=== PATIENT | female | born 1975 ===

== ENCOUNTER 2016-07-10 18:45 | Emergency (ER) | payer MEDICAID ==
[2016-07-10 18:52] VITALS: RESP 18; TEMP 98.3
--- NOTE | 2016-07-10 19:32 | C.PDOC ---
History Of Present Illness 41 y.o female reports piece of ceiling wall collapsed and fell on her 2 days and now complains of low back pain. She has been taking Tylenol with little relief. She complains of aching low back pain that is non-radiating. Denies any numbness, weakness, incontinence, or other injuries. Time Seen by Provider: 07/10/16 19:15 Chief Complaint (Nursing): Back Pain History Per: Patient History/Exam Limitations: no limitations Onset/Duration Of Symptoms: Days (3) Current Symptoms Are (Timing): Still Present Quality Of Discomfort: Aching, "Pain" Severity: Mild Associated Symptoms: denies: Incontinence, New Weakness, New Numbness Past Medical History Reviewed: Historical Data, Nursing Documentation, Vital Signs Vital Signs: Last Vital Signs Temp 98.3 F 07/10/16 18:49 Pulse 75 07/10/16 20:05 Resp 18 07/10/16 20:05 BP 120/70 07/10/16 20:05 Pulse Ox 99 07/10/16 20:05 - Medical History PMH: Asthma Surgical History: No Surg Hx - [facility] Procedures IMMOBILIZ/WOUND ATTN NEC (01/27/14) INDIVID PSYCHOTHERAP NEC (06/18/14) INJECT/INFUSE NEC (09/23/12) OTHER GROUP THERAPY (06/18/14) Family History: States: Unknown Family Hx - Social History Hx Tobacco Use: Yes Hx Alcohol Use: No Hx Substance Use: No - Immunization History Hx Tetanus Toxoid Vaccination: No Hx Influenza Vaccination: No Hx Pneumococcal Vaccination: No Review Of Systems Constitutional: Negative for: Fever, Weakness, Malaise ENT: Negative for: Ear Pain, Nose Congestion, Throat Pain Cardiovascular: Negative for: Chest Pain, Palpitations Respiratory: Negative for: Cough, Shortness of Breath Gastrointestinal: Negative for: Vomiting, Abdominal Pain, Diarrhea Genitourinary: Negative for: Dysuria, Frequency, Vaginal Discharge, Vaginal Bleeding Musculoskeletal: Positive for: Back Pain. Negative for: Leg Pain Skin: Negative for: Rash Neurological: Negative for: Weakness, Numbness, Headache Physical Exam - Physical Exam Appears: Non-toxic, No Acute Distress Skin: Warm, Dry, No Rash, No Ecchymosis Head: Atraumatic, Normacephalic Eye(s): bilateral: Normal Inspection, EOMI Nose: Normal Neck: Normal ROM, Supple Chest: Symmetrical Cardiovascular: Rhythm Regular, No Murmur Respiratory: Normal Breath Sounds, No Wheezing Gastrointestinal/Abdominal: Normal Exam, Soft, No Tenderness, No Distention, No Guarding Back: Normal Inspection, No CVA Tenderness, No Vertebral Tenderness, No Decreased ROM, Paraspinal Tenderness (paralumbar muscle tenderness) Extremity: Bilateral: Atraumatic, Normal Color And Temperature, Normal ROM Neurological/Psych: Oriented x3, Normal Speech ED Course And Treatment O2 Sat by Pulse Oximetry: 100 Medical Decision Making Medical Decision Making: Impression: Low back pain Plan: * LS spine xray * Motrin * Valium Reassess: XRay reviewed showing normal lordosis and disk, no acute fracture or subluxation. Upon reevaluation, patient reports pain is improving. Recommend analgesics as needed and to follow up with PCP Disposition Counseled Patient/Family Regarding: Need For Followup, Rx Given - Disposition Disposition: HOME/ ROUTINE Disposition Time: 19:52 Condition: STABLE Additional Instructions: Your xray was normal, no fracture. Please apply ice to area 15 minutes three times a day. Take Motrin as needed for pain every 6 hours and muscle relaxant as needed Prescriptions: Cyclobenzaprine [Cyclobenzaprine HCl] 10 mg PO TID #30 tab Ibuprofen [Motrin] 600 mg PO Q8 #30 tab Instructions: Acute Low Back Pain (DC) Forms: Work Excuse - POA Present On Arrival: None - Clinical Impression Clinical Impression: Low back pain
[2016-07-10 20:06] VITALS: BP 120/70; PULSE 75
[2016-07-10 20:34] VITALS: O2SAT 100
--- NOTE | 2016-07-11 08:20 | RAD ---
PROCEDURE: Radiographs of the Lumbar Spine. HISTORY: pain s.p injury COMPARISON: No prior. FINDINGS: BONES: Normal alignment. No listhesis. No fracture. DISC SPACES: Unremarkable. OTHER FINDINGS: None. IMPRESSION: Unremarkable radiographs of the lumbar spine.
== END 2016-07-10 20:06 | disposition home or self-care (01) ==
LOC: C.ER 18:45
DX: M54.5 Low back pain (principal)